=== PATIENT | female | born 1960 | race Caucasian/White ===

== ENCOUNTER 2024-12-11 09:49 | Outpatient (REF) | payer OTHER, SELFPAY ==
--- OUTSIDE RECORDS SUMMARY | 2024-12-11 10:56 | XMS_ITS | Clinical Summary ---
Author Organization [facility] Address [address] [place] [address] Phone Care Team Providers Care E Commerce Strategist Name Role Phone Chacorta Devi MD Primary Care Pr ovider Allergies No known active allergies Medications metroNIDAZOLE (METROCREAM) 0.75 % cream APPLY A THIN LAYER TO THE FACE ONCE TO TWICE DAILY NEEDED. 3 Active glucosamine/cho ndr damon A sod (OSTEO BI-FLEX ORAL) Take 1 tablet by mouth daily. Active multivit-min/ir on/FA/vit K/lut (MULTIVITAMIN WOMEN 50 PLUS ORAL) Take by mouth daily. Active VITAMIN D3-VITAMIN K2, MK4, ORAL Take 5,000 Units by mouth 2 (two) times a day. Active magnesium 200 mg tablet Take 200 mg by mouth 1 (one) time each day. Bisglycinate OTC Active krill/om-3/dha/ epa/phospho/ast (OMEGA-3 KRILL OIL ORAL) Take 1 each by mouth every 12 (twelve) hours. Active Proctosol HC 2.5 % rectal creamIndication s:Hemorrhoids, unspecified hemorrhoid type APPLY TO AFFECTED AREA A FILM TOPICALLY TWO TIMES A DAY FOR UP TO 2 WEEKS. (IC: PROCTOCARE-HC) 56.7 g 5 5 Active Active Problems Problem Noted Date Diagnosed Date Overweight (BMI 25.0-29.9) 10/24/2024 Assessment & Plan (10/24/2024 8:45 AM EDT): Lifestyle counseling provided as above Diverticulosis 10/24/2024 Osteopenia 10/10/2024 Assessment & Plan (10/24/2024 8:45 AM EDT): Continue with vitamin D+ K BID , omega 3 and magnesium daily. Periodontal disease 04/24/2024 Hemorrhoids 10/20/2023 Assessment & Plan (10/24/2024 8:45 AM EDT): Continue Anusol cream as needed Orders: hydrocortisone (ANUSOL-HC) 2.5 % rectal cream; Insert into the rectum 4 (four) times a day if needed for hemorrhoids (rectal discomfort). Mixed hyperlipidemia 10/20/2023 Overview (04/24/2024): Calculated ASCVD risk is 3.3% Assessment & Plan (10/24/2024 8:45 AM EDT): Lifestyle counseling provided. She is encouraged to cut back on her cheese consumption and she will try to do so. She will continue with her exercise regimen. Will repeat fasting labs in 6 months Orders: Lipid panel with reflex to direct LDL; Future Rosacea 10/20/2023 Assessment & Plan (10/24/2024 8:45 AM EDT): She follows with [facility] yearly for skin exams. Referral placed. She will continue with metronidazole cream as needed Orders: Ambulatory referral to Dermatology; Future Glaucoma 11/19/2020 Varicose vein of leg 11/19/2020 Proximal humerus fracture 04/20/2018 Heartburn 01/01/2013 Resolved Problems Problem Noted Date Diagnosed Date Resolved Date Mal de john 10/20/2023 10/24/2024 Encounters Date Type Department Care Team Description 11/28/2024 1:00 PM EDT Consult Orthopedic Surgery - [address] [place] [address] George Wiggins MD Extensor tenosynovitis of right wrist (Primary Dx); Wrist lump, right 11/12/2024 Telephone Orthopedic Surgery - [place] [address] [place] [phone] Belinda Shaw 10/24/2024 8:00 AM EDT Office Visit [address] [phone] Chacorta Devi MD Annual physical exam (Primary Dx); Mixed hyperlipidemia; Overweight (BMI 25.0-29.9); Osteopenia of multiple sites; Rosacea; Hemorrhoids, unspecified hemorrhoid type; Sensorineural hearing loss (SNHL) of both ears; Need for vaccination against Streptococcus pneumoniae 10/10/2024 6:55 PM EDT - 10/10/2024 11:59 PM EDT Hospital Encounter Radiology Department [address] [phone] Wrist lump, right Discharge Disposition: Home or Self Care 10/10/2024 4:19 PM EDT - 10/10/2024 11:59 PM EDT Hospital Encounter XRAY - [address] [phone] Wrist lump, right Discharge Disposition: Home or Self Care 10/10/2024 4:00 PM EDT Office Visit [address] [phone] Ceci Bryan PA Wrist lump, right (Primary Dx); Mixed hyperlipidemia 10/02/2024 Nurse Triage [address] [phone] Chacorta Devi MD Joint Swelling from Last 3 Months Immunizations Name Administration Dates Next Due Hep B, Unspecified 10/29/1997 Influenza Quadravalent, MDCK , 0.5ml, preservative free (Flucelvax) 6mo and older 03/16/2023,02/14/2018 Influenza Quadrivalent, 0.5m l, preservative free (Fluarix; FluLaval; Fluzone) ages 6mo and older (Afluria) 3yo and older 02/09/2021,02/11/2020,01/31/2017 Influenza trivalent, 0.5mL, preservative free (Fluarix; FluLaval; Fluzone) ages 6mo and older (Afluria) 3 years and older 01/27/2015 Influenza trivalent, with preservative (Fluzone; Afluria) 6mo and older 01/27/2015 Influenza, Unspecified 02/11/2020,2018,02/19/2018,2016,03/05/2016 MMR, measles mumps and rubel la Live (Priorix; M-M-R II) 12mo and older 06/15/2019,05/11/2019 Measles 10/29/1997 Mumps 05/04/2019 Pneumococcal conjugate 20 va lent (Prevnar 20, PCV 20) 2mo and older 10/24/2024 Rubella 10/29/1997 Tb Skin Test 02/20/2019,09/09/2016 Td Tetanus diptheria (Tdvax) 7yo and older 09/15/2017 Tdap Tetanus diptheria acell ular pertussis (Boostrix; Adacel) 7yo and older 02/23/2019,02/09/2008 Zoster Live 10/29/1997 Surgical History Surgery Date Site/Laterality Comments OTHER SURGICAL HISTORY PROCEDURE: ---- OTHER ----; COMMENT: multiple gum surgeries ESOPHAGOGASTRODUODENOSCOPY 12/14/2010 PROCEDURE: [place] ESOPHAGOGASTRODUODENOSCOPY TRANSORAL DIAGNOSTIC; COMMENT: normal COLONOSCOPY 01/21/2014 PROCEDURE: HISTORICAL COLONOSCOPY; COMMENT: tics; repeat in ten yrs MULTIPLE TOOTH EXTRACTIONS PROCEDURE: HISTORICAL DENTAL EXTRACTION BUNIONECTOMY 04/01/2023 s/p Left foot Lapidus bunionectomy with dr lane EYE SURGERY 11/13/2013 laser eye surgery Right eye 2013; left eye 2014 Medical History Medical History Date Comments Periodontal disease DX:Periodont al disease FHx: stomach cancer 10/08/2010 DX:FHx: stom ach cancer Glaucoma 11/19/2020 DX:Glaucoma Glaucoma 11/19/2020 Arthritis 10/20/23 Cataract 08/10/23 Family History Medical History Relation Name Comments Arthritis Father Gerson Harris Hearing loss Father Gerson Harris Stomach cancer Father Gerson Harris Breast cancer Mother Lainey Harris over 50 Valvular heart disease Mother Lainey Harris Blindness Neg Hx Cataracts Neg Hx Colon cancer Neg Hx Glaucoma Neg Hx Macular degeneration Neg Hx Ovarian cancer Neg Hx Strabismus Neg Hx Relation Name Status Comments Father Gerson Harris Stomach CA Maternal Grandfather Maternal Grandmother Mother Lainey Harris CAD, Breast CA in 50s, HTN Paternal Grandfather Paternal Grandmother Sister Alive HTN, cervical d ysplasia Social History Tobacco Use Types Packs/Day Years Used Date Smoking Tobacco: Never Smokeless Tobacco: Never Tobacco Cessation:Counseling Given: Not Answered Alcohol Use Standard Drinks/Week Comments Yes 0 (1 standard drink = 0.6 oz pur e alcohol) OCC Housing Instability Answer Date Recorde d Are you worried that in the next 2 months you may not have stable housing? No 10/24/2024 Food Access & Nutrition Answer Date Rec orded Do you have access to a vari ety of food including fruits and vegetables? No 10/24/2024 Access to Healthcare Answer Date Record ed Within the last 3 months, ho maynor many times did you visit the emergency department for your medical care? 0 10/24/2024 Health Literacy Answer Date Recorded How often do you need to hav e someone help you when you read instructions, pamphlets, or other written material from your doctor or pharmacy? Never 10/24/2024 Caregiver: How often do you need to have someone help you when you read instructions, pamphlets, or other written material from your doctor or pharmacy? Not on file 10/24/2024 Financial Risk Answer Date Recorded How hard is it for you to pa y for the very basics like food, housing, medical care, and air conditioning / heating? Not very hard 10/24/2024 Transportation Answer Date Recorded Has the lack of transportati on kept you from meetings, work, or from getting things needed for daily living? No Has the lack of transportati on kept you from medical appointments or from getting medications? No 10/24/2024 Social Isolation Answer Date Recorded How often do you feel lonely or isolated from th ose around you? Never 10/24/2024 Food Risk Answer Date Recorded Within the past 12 months we worried whether our food would run out before we got money to buy more. Never true 10/24/2024 Within the past 12 months th e food we bought just didn't last and we didn't have money to get more. Never true 10/24/2024 Dependent Care Answer Date Recorded Do you need help finding or paying for care for your loved ones. For example, children's institution attendant or elderly care for an older adult? No 10/24/2024 Education Answer Date Recorded Do you think completing more education or training, like finishing a GED, going to college, or learning a trade, would be helpful for you? No 10/24/2024 Employment and Income Answer Date Recor ded During the last four weeks, have you been actively looking for work? No 10/24/2024 Living Situation Answer Date Recorded What is your living situation? 0 10/24/2024 Interpersonal Safety Answer Date Record ed Physical Abuse 06/26/2024 Verbal Abuse 06/26/2024 Comments No Sex and Gender Information Value Date Recorded Sex Assigned at Female 06/25/2024 9:08 AM EST Legal Sex Female 3:27 AM EST Gender Identity Female 06/25/2024 9:08 AM EST Sexual Orientation Straight 06/26/2024 1: 21 PM EST Obstetrics History Last Filed Vital Signs Vital Sign Reading Time Taken Comments Blood Pressure 112/81 10/24/2024 8:01 AM EDT Pulse 63 10/24/2024 8:01 AM EDT Temperature 36.9 C (98.5 F) 10/24/2024 8:01 AM EDT Respiratory Rate 17 10/24/2024 8:01 AM EDT Oxygen Saturation 99% 10/10/2024 3:55 PM EDT Inhaled Oxygen Concentration - - Weight 75.8 kg (167 lb) 11/28/2024 1:02 PM EDT Height 162.6 cm (5' 4 ) 11/28/2024 1:02 PM EDT Body Mass Index 28.67 11/28/2024 1:02 PM EDT Plan of Treatment Health Maintenance Due Date Last Done Comments Zoster Vaccines (1 of 2) 2012 10/29/1997 HIV Screening 04/04/2022 Influenza Vaccine (#1) 2024 3, 02/09/2021, 02/11/2020, Additional history exists Social Influencers of Health Screening 10/24/2025 10/24/2024 Cervical Cancer Screening: HPV 10/29/2025 10/29/2020 Breast Cancer Screening 06/25/2026 06/25/2024 DTaP,Tdap,and Td Vaccines (4 - Td or Tdap) 02/23/2029 02/23/2019, 09/15/2017, 02/09/2008 Cholesterol Screening (Lipid Panel) 10/16/2029 10/16/2024, 10/21/2023, 10/21/2023 Colorectal Cancer Screening: Colonoscopy 06/26/2034 06/26/2024 RSV Immunization Adult Patients (1 - 1-dose 75+ series) 2037 Hepatitis B Vaccines Discontinued 10/29/1997 Hepatitis C Screening Completed 01/05/2013 MMR Vaccines Aged Out 06/15/2019, 05/11/2019 No lo nger eligible based on patient's age to complete this topic COVID-19 Vaccine Discontinued 03/02/2021, 07/2020, 05/01/2020 Depression Screening Completed 10/24/2024 Pneumococcal Vaccine: 50+ Years Completed 10/24/2024 HIB Vaccines Aged Out No longer eligi ble based on patient's age to complete this topic HPV Vaccines Aged Out No longer eligi ble based on patient's age to complete this topic Hepatitis A Vaccines Aged Out No long er eligible based on patient's age to complete this topic IPV Vaccines Aged Out No longer eligi ble based on patient's age to complete this topic Meningococcal ACWY Vaccine Aged Out N o longer eligible based on patient's age to complete this topic Meningococcal B Vaccine Aged Out No l onger eligible based on patient's age to complete this topic RSV Immunization Patients Under 20 months Aged Out No longer eligible based on patient's age to complete this topic Varicella Vaccines Aged Out No longer eligible based on patient's age to complete this topic Procedures Procedure Name Priority Date/Time Associated Diagnosis Comments CBC WITH AUTO DIFFERENTIAL Routine 10/16/2024 7:56 AM EDT Wrist lump, right CBC AND DIFFERENTIAL Routine 10/16/2024 7:56 AM EDT Wrist lump, right COMPREHENSIVE METABOLIC PANEL Routine 10/16/2024 7:56 AM EDT Wrist lump, right HEMOGLOBIN A1C Routine 10/16/2024 7:56 AM EDT Mixed hyperlipidemia LIPID PANEL WITH REFLEX TO DIRECT LDL Routine 10/16/2024 7:56 AM EDT Mixed hyperlipidemia US EXTREMITY NONVASCULAR LIMITED RIGHT Routine 10/10/2024 7:30 PM EDT Wrist lump, right XR WRIST 3+ VIEWS RIGHT Routine 10/10/2024 4:23 PM EDT Wrist lump, right COLONOSCOPY Routine 06/26/2024 3:36 PM EST Colon cancer screening HPV Routine 10/29/2020 HEPATITIS C SCREENING Routine 01/05/2013 from Last 3 Months or Most Recently Relevant to Health Maintenance Results * (ABNORMAL) Lipid panel with reflex to direct LDL (10/16/2024 7:56 AM EDT) Cholesterol 207(H) 0 - 200 mg/dL LAB CHEMISTRY METHOD 10/16/2024 11:47 AM [facility] Triglycerides 159(H) 0 - 150 mg/dL LAB CHEMISTRY METHOD 10/16/2024 11:47 AM [facility] HDL 54 >=40 mg/dL LAB CHEMISTRY METHOD 10/16/2024 11:47 AM [facility] LDL Calculated 121(H) 0 - 100 mg/dL LAB CHEMISTRY METHOD 10/16/2024 11:47 AM [facility] VLDL Cholesterol Dick 31.8 mg/dL LAB CHEMISTRY METHOD 10/16/2024 11:47 AM [facility] Non HDL Chol. (LDL+VLDL) 153(H) <145 mg/dL LAB CHEMISTRY METHOD 10/16/2024 11:47 AM [facility] Chol/HDL Ratio 3.8 0.0 - 4.4 LAB CHEMISTRY METHOD 10/16/2024 11:47 AM [facility] Blood Venous blood specimen / Unknown Venipuncture / Unknown 10/16/2024 7:56 AM EDT 10/16/2024 7:56 AM EDT us Ceci LAWRENCE LAB BLOOD ORDERABLES Final Re sult [facility] [address] [place] [address], * (ABNORMAL) CBC auto differential (10/16/2024 7:56 AM EDT) WBC 5.0 4.8 - 10.8 K/mcL LAB HEMETOLOGY METHOD 10/16/2024 10:07 AM [facility] RBC 4.90(H) 3.80 - 4.80 M/mcL LAB HEMETOLOGY METHOD 10/16/2024 10:07 AM [facility] Hemoglobin 14.8 11.5 - 16.0 g/dL LAB HEMETOLOGY METHOD 10/16/2024 10:07 AM [facility] Hematocrit 44.4 35.0 - 47.0 % LAB HEMETOLOGY METHOD 10/16/2024 10:07 AM [facility] MCV 90.1 79.0 - 98.0 FL LAB HEMETOLOGY METHOD 10/16/2024 10:07 AM [facility] MCH 30.0 27.0 - 32.0 pcg LAB HEMETOLOGY METHOD 10/16/2024 10:07 AM [facility] MCHC 33.3 32.0 - 37.0 g/dL LAB HEMETOLOGY METHOD 10/16/2024 10:07 AM [facility] RDW 12.4 11.0 - 15.0 % LAB HEMETOLOGY METHOD 10/16/2024 10:07 AM [facility] Platelets 237 130 - 400 K/mcL LAB HEMETOLOGY METHOD 10/16/2024 10:07 AM [facility] MPV 10.8 7.0 - 11.0 FL LAB HEMETOLOGY METHOD 10/16/2024 10:07 AM [facility] NRBC 0.0 <1.0 % LAB HEMETOLOGY METHOD 10/16/2024 10:07 AM [facility] NRBC Absolute 0.00 <0.10 K/mcL LAB HEMETOLOGY METHOD 10/16/2024 10:07 AM [facility] Neutrophils Relative 51.0 % LAB HEMETOLOGY METHOD 10/16/2024 10:07 AM [facility] Lymphocytes Relative 34.1 % LAB HEMETOLOGY METHOD 10/16/2024 10:07 AM [facility] Monocytes Relative 10.1 % LAB HEMETOLOGY METHOD 10/16/2024 10:07 AM [facility] Eosinophils Relative 4.0 % LAB HEMETOLOGY METHOD 10/16/2024 10:07 AM [facility] Basophils Relative 0.6 % LAB HEMETOLOGY METHOD 10/16/2024 10:07 AM [facility] Immature Granulocytes Relative 0.2 % LAB HEMETOLOGY METHOD 10/16/2024 10:07 AM [facility] Neutrophils Absolute 2.53 1.50 - 7.00 K/mcL LAB HEMETOLOGY METHOD 10/16/2024 10:07 AM [facility] Lymphocytes Absolute 1.69 1.00 - 5.00 K/mcL LAB HEMETOLOGY METHOD 10/16/2024 10:07 AM [facility] Monocytes Absolute 0.50 0.20 - 1.00 K/mcL LAB HEMETOLOGY METHOD 10/16/2024 10:07 AM EDT [facility] Eosinophils Absolute 0.20 0.00 - 0.50 K/[facility] LAB HEMETOLOGY METHOD 10/16/2024 10:07 AM EDT [facility] Basophils Absolute 0.03 0.00 - 0.20 K/[facility] LAB HEMETOLOGY METHOD 10/16/2024 10:07 AM EDT [facility] Immature Granulocytes Absolute 0.01 0.00 - 0.03 K/[facility] LAB HEMETOLOGY METHOD 10/16/2024 10:07 AM EDT [facility] Blood Venous blood specimen / Unknown Venipuncture / Unknown 10/16/2024 7:56 AM EDT 10/16/2024 7:56 AM EDT us Ceci LAWR[facility] LAB BLOOD ORDERABLES Final Re sult Performing Organization Address City/[facility]/ZIP Co de Phone Number [facility] [address] [place] [address], [place] [phone] * Hemoglobin A1c (10/16/2024 7:56 AM EDT) Hemoglobin A1C 5.5 <6.5 % LAB CHEMISTRY METHOD 10/16/2024 11:52 AM EDT [facility] Mean Bld Glu Estim. 111 mg/dL LAB CHEMISTRY METHOD 10/16/2024 11:52 AM EDT [facility] Blood Venous blood specimen / Unknown Venipuncture / Unknown 10/16/2024 7:56 AM EDT 10/16/2024 7:56 AM EDT us Ceci LAWRENCE LAB BLOOD ORDERABLES Final Re sult Performing Organization Address City/[facility]/ZIP Co de Phone Number [facility] [address] [place] [address], [place] [phone] * (ABNORMAL) Comprehensive metabolic panel (10/16/2024 7:56 AM EDT) Sodium 138 133 - 145 mmol/L LAB CHEMISTRY METHOD 10/16/2024 11:47 AM [facility] Potassium 4.2 3.5 - 5.5 mmol/L LAB CHEMISTRY METHOD 10/16/2024 11:47 AM [facility] Chloride 104 96 - 110 mmol/L LAB CHEMISTRY METHOD 10/16/2024 11:47 AM [facility] CO2 28 21 - 32 mmol/L LAB CHEMISTRY METHOD 10/16/2024 11:47 AM [facility] Anion Gap 6 3 - 11 LAB CHEMISTRY METHOD 10/16/2024 11:47 AM [facility] Glucose 105(H) 70 - 100 mg/dL LAB CHEMISTRY METHOD 10/16/2024 11:47 AM [facility] BUN 16 5 - 25 mg/dL LAB CHEMISTRY METHOD 10/16/2024 11:47 AM [facility] Creatinine 0.97 0.50 - 1.10 mg/dL LAB CHEMISTRY METHOD 10/16/2024 11:47 AM [facility] eGFR 67 >=60 mL/min/1. 73m2 LAB CHEMISTRY METHOD 10/16/2024 11:47 AM [facility] Comment:Calculation based on the Chronic Kidney Disease Epidemiology Collaboration (CKD-EPI) equation refit without adjustment for race. BUN/Creatinine Ratio 16.5 LAB CHEMISTRY METHOD 10/16/2024 11:47 AM [facility] Calcium 9.3 8.5 - 10.5 mg/dL LAB CHEMISTRY METHOD 10/16/2024 11:47 AM [facility] AST (SGOT) 38 10 - 42 unit/L LAB CHEMISTRY METHOD 10/16/2024 11:47 AM [facility] ALT (SGPT) 41 10 - 60 unit/L LAB CHEMISTRY METHOD 10/16/2024 11:47 AM EDT [facility] Alkaline Phosphatase 117 42 - 121 unit/L LAB CHEMISTRY METHOD 10/16/2024 11:47 AM EDT [facility] Total Protein 6.6 6.0 - 8.0 g/dL LAB CHEMISTRY METHOD 10/16/2024 11:47 AM EDT [facility] Albumin 4.0 3.2 - 5.0 g/dL LAB CHEMISTRY METHOD 10/16/2024 11:47 AM EDT [facility] Total Bilirubin 0.6 0.0 - 1.4 mg/dL LAB CHEMISTRY METHOD 10/16/2024 11:47 AM EDT [facility] Blood Venous blood specimen / Unknown Venipuncture / Unknown 10/16/2024 7:56 AM EDT 10/16/2024 7:56 AM EDT us Ceci LAWRENCE LAB BLOOD ORDERABLES Final Re sult [facility] [address] [place] [address], * US Extremity Nonvascular Limited Right (10/10/2024 7:30 PM EDT) Anatomical Region Laterality Modality Extremity Right Ultrasound 10/11/2024 9:37 AM EDT Impressions 10/11/2024 9:42 AM EDT No focal abnormality in area of clinical concern. No definite ganglion cyst seen sonographically. -------- FINAL REPORT -------- Dictated By: Adrienne Cuellar Dictated Date: 10/11/2024 09:37 ET Assigned Physician: Adrienne Cuellar Reviewed and Electronically Signed By: Adrienne Cuellar Signed Date: 10/11/2024 09:42 ET Workstation ID: [id number] Transcribed By: Self Edit Transcribed Date: 10/11/2024 09:37 ET Narrative 10/11/2024 9:42 AM EDT EXAMINATION: US EXTREMITY NONVASCULAR LIMITED RIGHT 10/10/2024 7:29 PM Patient : 1960 CLINICAL DATA/INDICATIONS: wrist lump ?ganglion COMPARISON: None TECHNIQUE: Multiple grayscale images of the right wrist were obtained in area of clinical concern FINDINGS: No focal mass lesion or fluid collection. The area of fluid adjacent to muscle may be artifactual. Procedure Note Adrienne Cuellar MD - 10/11/2024 EXAMINATION: US EXTREMITY NONVASCULAR LIMITED RIGHT 10/10/2024 7:29 PMPatient : 1960 CLINICAL DATA/INDICATIONS: wrist lump ?ganglion COMPARISON: None TECHNIQUE: Multiple grayscale images of the right wrist were obtained inarea of clinical concern FINDINGS: No focal mass lesion or fluid collection. The area of fluid adjacent tomuscle may be artifactual. IMPRESSION: No focal abnormality in area of clinical concern. No definite ganglioncyst seen sonographically. -------- FINAL REPORT -------- Dictated By: Adrienne Cuellar Dictated Date: 10/11/2024 09:37 ET Assigned Physician: Adrienne Cuellar Reviewed and Electronically Signed By: Adrienne Cuellar Signed Date: 10/11/2024 09:42 ET Workstation ID: [id number] Transcribed By: Self Edit Transcribed Date: 10/11/2024 09:37 ET us Ceci LAWRENCE IMG US PROCEDURES Final Resul t * XR Wrist 3+ Views Right (10/10/2024 4:23 PM EDT) Anatomical Region Laterality Modality Upper Extremities, Wrist Right Radiogr aphic Imaging 10/10/2024 6:45 PM EDT Impressions 10/10/2024 6:46 PM EDT No osseous or articular abnormalities of the right wrist. Moderate soft tissue swelling is present. -------- FINAL REPORT -------- Dictated By: Adrienne Cuellar Dictated Date: 10/10/2024 18:45 ET Assigned Physician: Adrienne Cuellar Reviewed and Electronically Signed By: Adrienne Cuellar Signed Date: 10/10/2024 18:46 ET Workstation ID: [id number] Transcribed By: Self Edit Transcribed Date: 10/10/2024 18:45 ET Narrative 10/10/2024 6:46 PM EDT HISTORY: R wrist pain TECHNIQUE: 3 radiographs of the right wrist COMPARISON: None. FINDINGS: No acute fracture or dislocation of the right wrist. The articular surfaces are grossly intact. Moderate soft tissue swelling is present. Procedure Note Adrienne Cuellar MD - 10/10/2024 HISTORY: R wrist pain TECHNIQUE: 3 radiographs of the right wrist COMPARISON: None. FINDINGS: No acute fracture or dislocation of the right wrist. The articularsurfaces are grossly intact. Moderate soft tissue swelling is present. IMPRESSION: No osseous or articular abnormalities of the right wrist. Moderate soft tissue swelling is present. -------- FINAL REPORT -------- Dictated By: Adrienne Cuellar Dictated Date: 10/10/2024 18:45 ET Assigned Physician: Adrienne Cuellar Reviewed and Electronically Signed By: Adrienne Cuellar Signed Date: 10/10/2024 18:46 ET Workstation ID: [id number] Transcribed By: Self Edit Transcribed Date: 10/10/2024 18:45 ET Ceci LAWRENCE IMG XR PROCEDURES Final Resul t * COLONOSCOPY Anesthesia - MAC; [facility] ENDOSCOPY (06/26/2024 3:36 PM EST) Anatomical Region Laterality Modality Endoscopy 06/26/2024 3:19 PM EST Impressions 06/26/2024 3:37 PM EST - One diminutive polyp in the transverse colon, removed with a jumbo cold forceps. Resected and retrieved. - Diverticulosis in the sigmoid colon. - Internal hemorrhoids. - The examination was otherwise normal. Recommendation: - Discharge patient to home. - Await pathology results. - Repeat colonoscopy in 10 years for surveillance. Narrative 06/26/2024 3:37 PM EST [facility] GI Patient Name: Flip Aman Procedure Date: 06/26/2024 3:19 PM Date of : 1960 Age: 63 Gender: Female Note Status: Finalized Attending MD: Nida Mccarty MD, Procedure Date No Time: 06/26/2024 Procedure: Colonoscopy Indications: Screening for colorectal malignant neoplasm Providers: Nida Mccarty MD Referring MD: Nida Mccarty MD Medicines: Monitored Anesthesia Care Complications: No immediate complications. Estimated blood loss: Minimal. Estimated Blood Loss: Estimated blood loss was minimal. Procedure: Pre-Anesthesia Assessment: - Prior to the procedure, a History and Physical was performed, and patient medications and allergies were reviewed. The patient is competent. The risks and benefits of the procedure and the sedation options and risks were discussed with the patient. All questions were answered and informed consent was obtained. Patient identification and proposed procedure were verified by the physician, the nurse, the avionics systems technician and the cardiovascular technician in the pre-procedure area in the endoscopy suite. Mental Status Examination: alert and oriented. Airway Examination: normal oropharyngeal airway and neck mobility. Respiratory Examination: clear to auscultation. CV Examination: normal. Prophylactic Antibiotics: The patient does not require prophylactic antibiotics. Prior Anticoagulants: The patient has taken no anticoagulant or antiplatelet agents. ASA Grade Assessment: II - A patient with mild systemic disease. After reviewing the risks and benefits, the patient was deemed in satisfactory condition to undergo the procedure. The anesthesia plan was to use monitored anesthesia care (MAC). Immediately prior to administration of medications, the patient was re-assessed for adequacy to receive sedatives. The heart rate, respiratory rate, oxygen saturations, blood pressure, adequacy of pulmonary ventilation, and response to care were monitored throughout the procedure. The physical status of the patient was re-assessed after the procedure. After I obtained informed consent, the scope was passed under direct vision. Throughout the procedure, the patient's blood pressure, pulse, and oxygen saturations were monitored continuously. The Olympus Colonoscope was introduced through the anus and advanced to the cecum, identified by appendiceal orifice and ileocecal valve. The colonoscopy was performed without difficulty. The patient tolerated the procedure well. The quality of the bowel preparation was excellent. Findings: The perianal and digital rectal examinations were normal. A diminutive polyp was found in the transverse colon. The polyp was sessile. The polyp was removed with a jumbo cold forceps. Resection and retrieval were complete. Estimated blood loss was minimal. Scattered small-mouthed diverticula were found in the sigmoid colon. Internal hemorrhoids were found during retroflexion. The hemorrhoids were Grade I (internal hemorrhoids that do not prolapse) and Grade II (internal hemorrhoids that prolapse but reduce spontaneously). The exam was otherwise without abnormality. Procedure Code(s): --- Professional --- 53907, Colonoscopy, flexible; with biopsy, single or multiple Diagnosis Code(s): --- Professional --- D12.3, Benign neoplasm of transverse colon (hepatic flexure or splenic flexure) CPT copyright 2020 [employer]. All rights reserved. The codes documented in this report are preliminary and upon tnt line supervisor review may be revised to meet current compliance requirements. Nida Mccarty MD 06/26/2024 3:37:05 PM This report has been signed electronically.Nida Mccarty MD Number of Addenda: 0 Note Initiated On: 06/26/2024 3:19 PM Scope Withdrawal Time: 0 hours 6 minutes 31 seconds Scope In: 3:25:05 PM Scope Out: 3:34:24 PM Endoscopy Department at [facility] - [address] [place] [id number] Procedure Note Nida Mccarty MD - 06/26/2024 [facility] GI Patient Name: Flip Brewer Procedure Date: 06/26/2024 3:19 PM Date of : 1960 Age: 63 Gender: Female Note Status: Finalized Attending MD: Nida Mccarty MD, Procedure Date No Time: 06/26/2024 Procedure: Colonoscopy Indications: Screening for colorectal malignant neoplasm Providers: Nida Mccarty MD Referring MD: Nida cMcarty MD Medicines: Monitored Anesthesia Care Complications: No immediate complications. Estimated blood loss: Minimal. Estimated Blood Loss: Estimated blood loss was minimal. Procedure: Pre-Anesthesia Assessment: - Prior to the procedure, a History and Physicalwas performed, and patient medications and allergieswere reviewed. The patient is competent. The risks and benefits of the procedure and the sedation optionsand risks were discussed with the patient. Allquestions were answered and informed consent was obtained. Patient identification and proposed procedure were verified by the physician, the nurse, theanesthetist and the cardiovascular technician in the pre-procedure area in the endoscopy suite. Mental Status Examination: alertand oriented. Airway Examination: normal oropharyngeal airway and neck mobility. Respiratory Examination: clear to auscultation. CV Examination: normal. Prophylactic Antibiotics: The patient does notrequire prophylactic antibiotics. Prior Anticoagulants: The patient has taken no anticoagulant or antiplatelet agents. ASA Grade Assessment: II - A patient withmild systemic disease. After reviewing the risks and benefits, the patient was deemed in satisfactory condition to undergo the procedure. The anesthesia plan was to use monitored anesthesia care (MAC). Immediately prior to administration of medications, the patient was re-assessed for adequacy to receive sedatives. The heart rate, respiratory rate, oxygen saturations, blood pressure, adequacy of pulmonary ventilation, and response to care were monitored throughout the procedure. The physical status ofthe patient was re-assessed after the procedure. After I obtained informed consent, the scope was passed under direct vision. Throughout theprocedure, the patient's blood pressure, pulse, and oxygen saturations were monitored continuously. TheOlympus Colonoscope was introduced through the anus and advanced to the cecum, identified by appendiceal orifice and ileocecal valve. The colonoscopy was performed without difficulty. The patient tolerated the procedure well. The quality of the bowel preparation was excellent. Findings: The perianal and digital rectal examinations were normal. A diminutive polyp was found in the transversecolon. The polyp was sessile. The polyp was removed with a jumbo cold forceps. Resection and retrieval were complete. Estimated blood loss was minimal. Scattered small-mouthed diverticula were found inthe sigmoid colon. Internal hemorrhoids were found duringretroflexion. The hemorrhoids were Grade I (internal hemorrhoids that do not prolapse) and Grade II (internal hemorrhoids that prolapse but reducespontaneously). The exam was otherwise without abnormality. Procedure Code(s): --- Professional --- 72552, Colonoscopy, flexible; with biopsy, singleor multiple Diagnosis Code(s): --- Professional --- D12.3, Benign neoplasm of transverse colon (hepatic flexure or splenic flexure) CPT copyright 2020 [employer]. All rights reserved. The codes documented in this report are preliminary and upon tnt line supervisor reviewmay be revised to meet current compliance requirements. Nida Mccarty MD 06/26/2024 3:37:05 PM This report has been signed electronically.Nida Mccarty MD Number of Addenda: 0 Note Initiated On: 06/26/2024 3:19 PM Scope Withdrawal Time: 0 hours 6 minutes 31 seconds Scope In: 3:25:05 PM Scope Out: 3:34:24 PM Endoscopy Department at [address] [id number] IMPRESSION: - One diminutive polyp in the transverse colon, removed with a jumbo cold forceps. Resected and retrieved. - Diverticulosis in the sigmoid colon. - Internal hemorrhoids. - The examination was otherwise normal. Recommendation: - Discharge patient to home. - Await pathology results. - Repeat colonoscopy in 10 years forsurveillance. Nida Mccarty MD GI~PROCEDURE ORDERABLES Fin al Result * Cervical Cancer Screening: HPV (10/29/2020) [facility] Cervical Cancer Screening: HPV abstracted, no interpretation Historical Provider HEALTH MAINTENANCE Final Result * Hepatitis C Screening (01/05/2013) [facility] Hepatitis C Screening abstracted Historical Provider HEALTH MAINTENANCE Final Result from Last 3 Months or Most Recently Relevant to Health Maintenance Insurance [place] [id number] [facility] PLAN Care Teams [employer] Strategist Relationship Specialty Start Date End Date Chacorta Devi MD [address] [facility], [place] PCP - General Internal Medicine 12/09/21
== END 2024-12-11 09:50 | disposition home or self-care (01) ==
LOC: HO.SH 09:49
PROVIDERS: Visit Provider Family Medicine
DX: Z01.118 Encounter for examination of ears and hearing with other abnormal findings (principal); H90.3 Sensorineural hearing loss, bilateral
CPT/HCPCS: 92557; 92567